=== PATIENT | female | born 1995 | race Caucasian/White ===

== ENCOUNTER 2019-07-17 22:51 | Inpatient (IN) | payer MEDICAID ==
[2019-07-18] MEDS ORDERED: ePHEDrine SULFATE 50 MG/1 ML INJ IV PRN ×2 (01:34→09:30)
[2019-07-18] MEDS ORDERED: PROMETHAZINE 25 MG TAB PO PRN ×2 (01:34→14:37)
[2019-07-18] MEDS ORDERED: TERBUTALINE 1 MG/1 ML INJ IVP PRN (01:34)
[2019-07-18] MEDS ORDERED: fentaNYL 100 MCG/2 ML INJ IV PRN (01:34)
[2019-07-18] MEDS ORDERED: BUTORPHANOL 2 MG/1 ML INJ IV PRN (01:34)
[2019-07-18] MEDS ORDERED: ONDANSETRON 4 MG/2 ML INJ IV PRN ×3 (01:34→19:04)
[2019-07-18] MEDS ORDERED: LIDOCAINE (2%) 20 MG/1 ML VIAL 20 ML MDV INFILTRATI ONE (01:34)
[2019-07-18] MEDS ORDERED: NALOXONE 0.4 MG/1 ML INJ IV PRN ×3 (01:34→19:04)
[2019-07-18] MEDS ORDERED: TERBUTALINE 1 MG/1 ML INJ SUB-Q PRN (01:34)
[2019-07-18] MEDS ORDERED: DINOPROSTONE 10 MG VAG SUPP VG ONE (01:34)
[2019-07-18] MEDS ORDERED: NalbUPHINE 10 MG/1 ML INJ IV PRN (01:34)
[2019-07-18] MEDS ORDERED: MINERAL OIL 30 ML ORAL LIQD PO PRN (01:34)
--- NOTE | 2019-07-18 01:44 | History and Physical Report ---
History of Present Illness Date of examination: 07/18/19 Date of admission: 07/18/19 Chief complaint: Leaking fluid History of present illness: Pt is a 24 yo at 40.0 weeks EGA who presents reporting leaking fluid since 1100 on 07/17 (15 hours before arrival to triage). She reports some movement. She has received care with [facility]. Her has been complicated by glucose intolerance with normal 3 hour GTT. She is GBS negative. Past History Past Medical History: no pertinent history Past Surgical History: no surgical history [employer] History: herpes (seropositive, no history outbreak) Family/Genetic History: none Social history: no significant social history - Obstetrical History Expected Date of Delivery: 07/18/19 Actual Gestation: 40 Week(s) 0 Day(s) : 1 Para: 0 Medications and Allergies Allergies Allergy/AdvReac Type Severity Reaction Status Date / Time No Known Allergies Allergy Verified 07/18/19 00:53 Home Medications Medication Instructions Recorded Confirmed Last Taken Type valACYclovir [Valtrex] 1 tab PO DAILY 07/18/19 07/18/19 07/17/19 History Active Meds: Active Medications Butorphanol Tartrate (Stadol) 2 mg IV Q2H PRN PRN Reason: Pain , Severe (7-10) Dinoprostone (Cervidil) 10 mg VG ONCE ONE Stop: 07/18/19 01:35 Ephedrine Sulfate (Ephedrine Sulfate) 10 mg IV Q2M PRN PRN Reason: Hypotension Fentanyl (Sublimaze) 100 mcg IV Q2H PRN PRN Reason: Labor Pain Oxytocin/Sodium Chloride (Pitocin/Ns 20 Unit/1000ml Drip) 20 units in 1,000 mls @ 125 mls/hr IV DIRECT LUI Oxytocin/Sodium Chloride (Pitocin/Ns 30 Unit/500ml) 30 units in 500 mls @ 1 mls/hr IV TITR LUI; Protocol Oxytocin/Sodium Chloride (Pitocin/Ns 30 Unit/500ml) 30 units in 500 mls @ 2 mls/hr IV TITR LUI; Protocol Lactated Ringer's (Lactated Ringers) 1,000 mls @ 125 mls/hr IV DIRECT LUI Lidocaine (Xylocaine 2%) 20 ml INFILTRATI ONCE ONE Stop: 07/18/19 01:35 Mineral Oil (Mineral Oil) 30 ml PO QHS PRN PRN Reason: Constipation Nalbuphine HCl (Nalbuphine) 10 mg IV Q2H PRN PRN Reason: Pain, Moderate (4-6) Naloxone HCl (Naloxone) 0.1 mg IV Q2MIN PRN PRN Reason: Res Rate </= 8 or 02 SAT < 92% Ondansetron HCl (Zofran) 4 mg IV Q8H PRN PRN Reason: Nausea And Vomiting Promethazine HCl (Phenergan) 25 mg PO Q6H PRN PRN Reason: Nausea And Vomiting Terbutaline Sulfate (Brethine) 0.25 mg SUB-Q ONCE PRN PRN Reason: Hyperstimulation/Hypertonicity Terbutaline Sulfate (Brethine) 0.25 mg IVP ONCE PRN PRN Reason: Hyperstimulation/Hypertonicity Review of Systems All systems: negative Genitourinary: leakage of fluid, contractions, no genital sores - Vital Signs Vital signs: Vital Signs Pulse BP 74 134/74 07/18/19 00:46 07/18/19 00:46 Temp Pulse Resp BP Pulse Ox 98.4 F 74 134/74 07/18/19 00:53 07/18/19 00:46 07/18/19 00:46 - Physical Exam Abdomen: Positive: soft Uterus: Positive: enlarged (EFW 8 lb) Extremities: Positive: normal - Obstetrical FHR: category 1 Uterine Contraction Monitor Mode: Palpation Cervical Dilatation: 1 Cervical Effacement Percentage: 60 station: -3 Uterine Tone Measurement Phase: Contraction Uterine Contraction Intensity: Strong/Firm Results All other labs normal. Assessment and Plan A: 24 yo at 40.0 weeks EGA SROM x15 hours GBS negative P: Admit for augmentation of labor Pain relief as requested Anticipate
[2019-07-18] MEDS ORDERED: OXYTOCIN DRIP 30 UNITS/500 ML BAG IV SCH ×2 (02:00)
[2019-07-18] MEDS ORDERED: LACTATED RINGERS 1,000 ML IV SCH ×2 (02:00→15:00)
[2019-07-18] MEDS ORDERED: OXYTOCIN 20 UNIT/1000ML DRIP 20 UNITS/1,000 ML BAG IV SCH ×3 (02:00→19:04)
[2019-07-18 03:21] LABS: Hematocrit 33.5 % (30.3-42.9); Hemoglobin 11.1 gm/dl (10.1-14.3); Mean Corpuscular HGB Conc 33 % (30-34); Mean Corpuscular Volume 82 fl (79-97); Platelet Count 165 K/mm3 (140-440); Red Blood Count 4.06 M/mm3 (3.65-5.03); Red Cell Distribution Width 14.7 % (13.2-15.2)
[2019-07-18] MEDS ORDERED: DEXMEDETOMIDINE 200 MCG/2 ML VIAL IV ONE ×2 (08:33→08:34)
--- NOTE | 2019-07-18 08:48 | Event Note ---
Date: 07/18/19 Pt very uncomfortable with contractions. SVE: /-3. Category II tracing. Routine intrapartum care.
[2019-07-18] MEDS ORDERED: AMPICILLIN/NS 2 GM/100 ML 2 GM/100 ML BAG IV ONE (09:00)
--- NOTE | 2019-07-18 09:00 | Anesthesia Consultation ---
Anesthesia Consult and Med Hx Date of service: 07/18/19 - Airway Anesthetic Teeth Evaluation: Good ROM Head & Neck: Adequate Mental/Hyoid Distance: Adequate Mallampati Class: Class II Intubation Access Assessment: Good - Pulmonary Exam CTA: Yes - Cardiac Exam Cardiac Exam: RRR - Pre-Operative Health Status ASA Pre-Surgery Classification: ASA2, Emergency Proposed Anesthetic Plan: Epidural - Pulmonary Hx Asthma: No COPD: No Hx Pneumonia: No - Cardiovascular System Hx Hypertension: No - Central Nervous System Hx Seizures: No Hx Psychiatric Problems: No - Endocrine Hx Renal Disease: No Hx End Stage Renal Disease: No Hx Hypothyroidism: No Hx Hyperthyroidism: No - Hematic Hx Anemia: No Hx Sickle Cell Disease: No - Other Systems Hx Alcohol Use: No
[2019-07-18] MEDS ORDERED: BUPIVACAINE/PF (0.25%) 2.5 MG/ML 10 ML VIAL INFILTRATI ONE (09:06)
[2019-07-18] MEDS ORDERED: NALOXONE 2 MG/2 ML INJ IV PRN (09:30)
[2019-07-18] MEDS ORDERED: fentaNYL-BUPIV 2 MCG/ML-0.125% 200 MCG/100 ML BAG EPIDURAL SCH ×2 (10:00→15:00)
[2019-07-18] MEDS ORDERED: AMPICILLIN/NS 1 GM/50 ML 1 GM/50 ML BAG IV SCH (13:00)
[2019-07-18] MEDS ORDERED: BUPIVACAINE/PF (0.5%) 5 MG/1 ML 30 ML VIAL INFILTRATI ONE ×2 (14:33)
[2019-07-18] MEDS ORDERED: FAMOTIDINE 20 MG/2 ML INJ IV SCH (14:35)
[2019-07-18] MEDS ORDERED: BICITRA ORAL LIQD 30ML PO SCH (14:35)
[2019-07-18] MEDS ORDERED: METOCLOPRAMIDE 10 MG/2 ML INJ IV SCH (14:35)
[2019-07-18] MEDS ORDERED: PROMETHAZINE 25 MG RECT SUPP PR PRN (14:37)
[2019-07-18] MEDS ORDERED: HYDROmorphone 1 MG/1 ML INJ IV PRN ×2 (14:37)
--- NOTE | 2019-07-18 14:37 | Anesthesia Day of Surgery ---
Anesthesia Day of Surgery - Day of Surgery Patient Examined: Yes Patient H&P Reviewed: Yes Patient is NPO: Yes
--- NOTE | 2019-07-18 14:47 | Event Note ---
Date: 07/18/19 Pt remains 9 cm despite adequate contractility for three hours. Decision made to proceed with delivery. Anesthesia aware.
[2019-07-18] MEDS ORDERED: ceFAZolin/Water 2 GM/20 ML 2 GM/20 ML SYRINGE IV NR (15:00)
[2019-07-18] MEDS ORDERED: PROPOFOL 200 MG/20 ML VIAL IV ONE (15:11)
[2019-07-18] MEDS ORDERED: METHYLERGONOVINE MALEATE 0.2 MG/ML VIAL IM ONE (15:13)
[2019-07-18] MEDS ORDERED: SODIUM CHLORIDE 0.9% IRR 1,500 ML BOTTLE IR ONE (15:20)
[2019-07-18] MEDS ORDERED: WATER FOR IRRIG STERILE 1,500 ML BOTTLE IR ONE (15:20)
[2019-07-18] MEDS ORDERED: MIDAZOLAM 2 MG/2 ML INJ ONE (15:25)
[2019-07-18] MEDS ORDERED: fentaNYL 100 MCG/2 ML INJ ONE (15:26)
[2019-07-18] MEDS ORDERED: ONDANSETRON 4 MG/2 ML INJ ONE (15:58)
[2019-07-18] MEDS ORDERED: ROCURONIUM 50 MG/5 ML INJ IV ONE (15:58)
[2019-07-18] MEDS ORDERED: OXYTOCIN 10 UNIT/1 ML INJ ONE (15:58)
[2019-07-18] MEDS ORDERED: KETOROLAC 30 MG/1 ML INJ ONE (15:58)
[2019-07-18] MEDS ORDERED: SUCCINYLCHOLINE CHLORIDE 200 MG/10 ML INJ MDV ONE (15:58)
--- NOTE | 2019-07-18 16:25 | Procedure Note ---
OB Delivery Note - Delivery Date of Delivery: 07/18/19 Surgeon: NHI HEBERT Estimated blood loss: other (800 mL) - Section Preop diagnosis: arrest of dilation Postop diagnosis: same section procedure: section, primary low transverse Disposition: PACU Complications: none Narrative: Please see operative report. - Infant A at 1 minute: 7 at 5 minutes: 8 Gender: Male (4003g @ 1533 pm)
--- NOTE | 2019-07-18 16:26 | Operative Report ---
Operative Report Operative Report: Date of procedure: July 18, 2019 Preoperative diagnosis: 1) IUP at 40w0d 2)Prolonged ROM 3) Obesity 4) Arrest of Dilation Postoperative diagnosis: Same Procedure:Primary low transverse section Surgeon: Saige Rojas M.D. Anesthesia: GETA Findings: 1) Viable male , Apgars 7 and 8, weight 4003g in cephalic presentation, occiput posterior 2) Normal-appearing uterus ovaries and tubes. Estimated blood loss: 800 mL Urine output: 200 mL, clear at the end of the procedure Drains: Misrha to gravity Specimens: Placenta to pathology Complications:None.Counts correct x 3 Disposition: Stable to PACU Indication for procedure: Pt is a 24 year old primigravida at 40w0d presents with rupture of membranes 15 hrs prior to presentation. She arrested at 9 cm for three hours despite adequate contractility. The decision was made to proceed to section. Operation in detail: After the risks, benefits, alternatives and complications were explained to the patient she gave informed consent for the procedure. She was subsequently taken to the operating room where regional anesthesia was noted to be inadequate. She was subsequently placed in the dorsal supine position with leftward tilt and prepped and draped in a normal sterile fashion. heart tones were noted to be in the 130s prior to incision. A timeout was performed. General anesthesia was then induced without difficulty. A Pfannenstiel skin incision was made with the knife and carried down to the layer of the fascia with the Bovie. The fascia was incised in the midline and the fascial incision was extended bilaterally with the Bovie. The fascial incision was then stretched. The rectus muscles were then in the midline. The peritoneum was then entered sharply. The peritoneal incision was extended with good visualization of the bladder. The peritoneal incision was then stretched. An Attila retractor was placed. The bladder blade was placed. A transverse incision was made in the lower uterine segment with a knife and extended bilaterally with the bandage scissors. The head was delivered with some difficulty followed by shoulders and body. was bulb suctioned at delivery. The cord was clamped and cut and the was handed to NICU staff in attendance. Cord blood was collected. The placenta was then delivered manually. The uterus was then exteriorized and cleared of all clots and debris. The hysterotomy was then reapproximated with 0 Vicryl in a running locked fashion. A second layer of the same suture was used in imbricating fashion. The hysterotomy was inspected and hemostasis was noted. The uterus was placed back into the peritoneal cavity. The gutters were irrigated and cleared of all clots and debris. The hysterotomy was again inspected and noted to be hemostatic. Surgicel was placed over the hysterotomy. The peritoneum was reapproximated with 2-0 Vicryl in a running fashion incorporating the rectus muscles. Surigcel was placed over the cut surface of the muscles. The fascia was reapproximated with 0 Vicryl in a running fashion. The subcutaneous tissue was reapproximated with 3-0 Vicryl in a running fashion. The skin was reapproximated with 4-0 Vicryl in a subcuticular fashion. The incision was then covered with steri strips and a pressure dressing. The procedure was then ended. The patient tolerated the procedure well and was taken to the PACU in stable condition. All instrument, lap, and needle counts were correct 3.
--- NOTE | 2019-07-18 17:22 | Post Anesthesia Evaluation ---
- Post Anesthesia Evaluation Patient Participated: Yes Airway Patent: Yes Stable Respiratory Function: Yes Nausea/Vomiting: No Temp > 96.8F: Yes Pain Manageable: Yes (KILLIAN QL block for POP) Adequeate Hydration: Yes Anesthesia Complications: No Block Receding Appropriately: Yes Patient on Ventilator: No
[2019-07-18] MEDS ORDERED: MORPHINE 2 MG/1 ML INJ IV PRN (19:04)
[2019-07-18] MEDS ORDERED: D5W/LACTATED RINGERS 1,000 ML IV SCH (19:04)
[2019-07-18] MEDS ORDERED: WITCH HAZEL/ GLYCERIN PAD TP PRN (19:04)
[2019-07-18] MEDS ORDERED: MORPHINE 4 MG/1 ML INJ IV PRN (19:04)
[2019-07-18] MEDS ORDERED: LANOLIN/ZINC/DIMETHICONE (LANSINOH) 7 GM TP PRN (19:04)
[2019-07-18] MEDS: ceFAZolin/NS 1 GM/50 ML 1 GM/50 ML BAG IV SCH (23:18)
[2019-07-19 04:51] LABS: Hematocrit 30.1 % (30.3-42.9); Hemoglobin 9.9 gm/dl (10.1-14.3)
[2019-07-19] MEDS: oxyCODONE /ACETAMINOPHEN 5-325MG TAB PO PRN ×3 (05:56→19:55)
[2019-07-19] MEDS ORDERED: TETANUS,DIPH,PERTUSS(ACELL) VACCINE 0.5 ML SYRINGE IM ONE (06:00)
[2019-07-19] MEDS ORDERED: MEASLES, MUMPS & RUBELLA 12,500 UNIT/0.5 ML VACCINE SUB-Q ONE (06:00)
[2019-07-19] MEDS: ceFAZolin/NS 1 GM/50 ML 1 GM/50 ML BAG IV SCH (06:28)
[2019-07-19] MEDS: PRENATAL VIT27-FE FUMARATE-FOLIC ACID VIT TAB PO SCH (10:07)
[2019-07-19] MEDS: FERROUS SULFATE 325 MG TAB PO SCH (10:07)
--- NOTE | 2019-07-19 13:00 | Progress Note ---
Assessment and Plan POD1 s/p primary c/s and chorioamnionitis VSS Anemia- ferrous sulfate Initiate bowel regimen Routine pp care Subjective - Subjective Date of service: 07/19/19 Principal diagnosis: s/p primary c/s Interval history: POD1 s/p primary c/s Patient reports: appetite normal, voiding normally, pain well controlled, ambulating normally, no flatus : doing well, bottle feeding Objective - Vital Signs Latest vital signs: Vital Signs Temp Pulse Resp BP BP Pulse Ox 07/19/19 12:11 97.8 F 92 H 18 110/64 98 07/19/19 08:41 98.7 F 87 18 106/58 97 07/19/19 04:20 98.8 F 99 H 20 101/54 95 07/18/19 23:36 98.4 F 81 20 112/59 95 07/18/19 20:31 98.1 F 67 20 126/70 97 07/18/19 18:53 20 07/18/19 18:13 97.9 F 67 20 113/48 97 07/18/19 17:57 98.6 F 74 19 120/57 6 L 07/18/19 17:44 66 22 112/63 94 07/18/19 17:30 61 21 117/61 97 07/18/19 17:25 63 24 113/67 97 07/18/19 17:15 63 31 H 115/67 97 07/18/19 17:10 65 26 H 119/64 98 07/18/19 17:05 67 32 H 113/69 97 07/18/19 17:00 65 25 H 109/64 98 07/18/19 16:55 59 L 15 120/74 100 07/18/19 16:51 68 18 116/77 100 07/18/19 16:45 61 30 H 100/51 99 07/18/19 16:40 61 25 H 100/55 98 07/18/19 16:36 96.7 F L 77 24 86/42 97 07/18/19 15:52 93 H 24 117/68 98 07/18/19 14:53 80 98 07/18/19 14:48 81 99 07/18/19 14:43 76 99 07/18/19 14:38 81 132/88 98 07/18/19 14:33 85 99 07/18/19 14:28 81 98 07/18/19 14:23 85 97 07/18/19 14:22 83 132/67 07/18/19 14:18 89 99 07/18/19 14:13 93 H 99 07/18/19 14:08 83 143/71 100 07/18/19 14:03 83 98 07/18/19 13:58 83 99 07/18/19 13:54 90 132/67 07/18/19 13:53 85 99 07/18/19 13:48 81 98 07/18/19 13:43 83 99 07/18/19 13:38 79 98 07/18/19 13:37 74 125/63 07/18/19 13:33 79 97 07/18/19 13:29 80 151/78 07/18/19 13:28 95 H 95 07/18/19 13:26 83 162/67 07/18/19 13:25 85 89 07/18/19 13:22 90 157/93 98 07/18/19 13:17 93 H 100 07/18/19 13:12 80 97 07/18/19 13:09 80 107/53 07/18/19 13:07 75 100 07/18/19 13:02 85 98 Intake and Output 07/18/19 07/19/19 07/19/19 23:59 07:59 15:59 Intake Total 1800 240 240 Output Total 1750 1300 700 Balance 50 -1060 -460 Intake: IV 1800 ANCEF/NS 1 GM/50 ML 1 gm 50 In 50 ml @ 100 mls/hr IV Q8H [facility] Rx#:[id number] Oral 240 Intake, Free Water 240 Output: Urine 1750 1300 700 Indwelling Catheter 1300 Uretheral (Mishra) 1250 Void 700 Other: Total, Intake Amount 120 Total, Output Amount 600 700 # Voids Void 1 - Exam Lungs: Present: Normal air movement Abdomen: Present: soft Uterus: Present: firm, fundal height below umbilicus Extremities: Present: normal Incision: Present: dressed - Labs Labs: Abnormal lab results 07/19/19 Range/Units 04:30 Hgb 9.9 L (10.1-14.3) gm/dl Hct 30.1 L (30.3-42.9) %
[2019-07-19] MEDS: MAGNESIUM HYDROXIDE (MOM) ORAL LIQD UDC PO PRN ×2 (16:25→21:20)
[2019-07-19] MEDS: IBUPROFEN 800 MG TAB PO PRN ×2 (16:25→23:37)
[2019-07-20] MEDS: IBUPROFEN 800 MG TAB PO PRN ×2 (05:23→16:42)
--- NOTE | 2019-07-20 08:24 | Progress Note ---
Assessment and Plan POD2 s/p primary c/s and chorioamnionitis VSS Anemia- ferrous sulfate Routine pp care. Anticipate d/c to home on POD3 Subjective - Subjective Date of service: 07/20/19 Principal diagnosis: s/p primary c/s Interval history: POD2 s/p primary c/s Patient reports: appetite normal, voiding normally, pain well controlled, flatus, ambulating normally : doing well, bottle feeding Objective - Vital Signs Latest vital signs: Vital Signs Temp Pulse Resp BP BP Pulse Ox 07/20/19 05:23 18 07/20/19 00:00 97.4 F L 79 20 117/72 97 07/19/19 23:37 18 07/19/19 19:55 18 07/19/19 15:29 98.0 F 92 H 18 114/68 97 07/19/19 12:11 97.8 F 92 H 18 110/64 98 07/19/19 08:41 98.7 F 87 18 106/58 97 Intake and Output 07/19/19 07/20/19 07/20/19 23:59 07:59 15:59 Intake Total 480 240 Output Total 400 Balance 80 240 Intake: Oral 480 240 Output: Urine 400 Void 400 Other: Total, Intake Amount 480 240 Total, Output Amount 400 # Voids Void 1 1 - Exam Lungs: Present: Normal air movement Abdomen: Present: soft Uterus: Present: firm, fundal height below umbilicus Incision: Present: dressed
[2019-07-20] MEDS: FERROUS SULFATE 325 MG TAB PO SCH (11:26)
[2019-07-20] MEDS: PRENATAL VIT27-FE FUMARATE-FOLIC ACID VIT TAB PO SCH (11:26)
--- NOTE | 2019-07-21 08:25 | Progress Note ---
Assessment and Plan POD3 s/p primary c/s and chorioamnionitis VSS Anemia- ferrous sulfate d/c home today with f/u in 2 weeks Subjective - Subjective Date of service: 07/21/19 Principal diagnosis: s/p primary c/s Patient reports: appetite normal, voiding normally, pain well controlled, flatus, ambulating normally [place]: doing well Objective - Vital Signs Latest vital signs: Vital Signs Temp Pulse Resp BP BP Pulse Ox 07/21/19 00:30 98.5 F 90 18 127/80 100 07/20/19 17:52 98.6 F 91 H 18 115/69 98 07/20/19 11:28 98.0 F 18 113/72 07/20/19 08:37 98.0 F 82 18 112/68 95 Intake and Output 07/20/19 07/21/19 07/21/19 23:59 07:59 15:59 Intake Total 360 240 Balance 360 240 Intake: Intake, Free Water 360 240 Other: # Voids Void 2 2 - Exam Breasts: Present: normal Cardiovascular: Present: Regular rate, Normal S1 Lungs: Present: Clear to auscultation, Normal air movement Abdomen: Present: normal appearance, soft, normal bowel sounds. Absent: distention, tenderness, guarding Vulva: both: normal Uterus: Present: normal, firm. Absent: bogginess, tenderness Extremities: Present: normal Deep Tendon Reflex Grade: Normal +2 Incision: Present: normal, dry, intact
--- NOTE | 2019-07-21 08:27 | Discharge Summary ---
Providers - Providers Date of Admission: 07/18/19 01:55 Date of discharge: 07/21/19 Attending physician: DOMINGO SHANNON MD Primary care physician: DOMINGO SHANNON MD Hospitalization Reason for admission: IUP at term Delivery: Procedure: section Episiotomy: none Laceration: none Incision: normal, dry, intact Other procedures: none complications: none Discharge diagnosis: IUP at term delivered [place] baby: male Hospital course: Priscilla had a repeat csec for arrest of dilatation. Did well PP. Discharge on POD3 Condition at discharge: Good Disposition: DC-01 TO HOME OR SELFCARE Plan - Discharge Medications Prescriptions: Ferrous Sulfate [Feosol 325 MG tab] 325 mg PO BID #60 tablet Ibuprofen [Motrin] 800 mg PO Q8HR PRN #30 tablet PRN Reason: Pain, Moderate (4-6) oxyCODONE /ACETAMINOPHEN [Percocet 5/325] 1 tab PO Q6HR PRN #40 tablet PRN Reason: Pain - Provider Discharge Summary Activity: routine, no sex for 6 weeks, no strenuous exercise Diet: routine Instructions: routine Additional instructions: [] Smoking cessation referral if applicable(refer to patient education folder for contact #) [] Refer to [facility] Booklet Call your doctor immediately for: * Fever > 100.5 * Heavy vaginal bleeding ( >1 pad per hour) * Severe persistent headache * Shortness of breath * Reddened, hot, painful area to leg or breast * Drainage or odor from incision. * Keep incision clean and dry at all times and follow doctor's instructions regarding bathing/showering - Follow up plan Follow up: DOMINGO SHANNON MD [Primary Care Provider] - 14 Days
[2019-07-21] MEDS: FERROUS SULFATE 325 MG TAB PO SCH (10:13)
[2019-07-21] MEDS: IBUPROFEN 800 MG TAB PO PRN (10:14)
[2019-07-21] MEDS: PRENATAL VIT27-FE FUMARATE-FOLIC ACID VIT TAB PO SCH (10:14)
[2019-07-21 12:39] VITALS: BP 106/62
== END 2019-07-21 12:40 | disposition home or self-care (01) | DRG 765 ==
LOC: TRG 22:51 → LD 07-18 01:55 → OB 07-18 18:38
PROVIDERS: ADMIT Obstetrics & Gynecology; ATTEND Obstetrics & Gynecology
PROC: 10D00Z1 Extraction of Products of Conception, Low, Open Approach (ICD-10-PCS; principal; 2019-07-18)
PROC: 3E0234Z Introduction of Serum, Toxoid and Vaccine into Muscle, Percutaneous Approach (ICD-10-PCS; 2019-07-19)
PROC: 3E0134Z Introduction of Serum, Toxoid and Vaccine into Subcutaneous Tissue, Percutaneous Approach (ICD-10-PCS; 2019-07-19)
DX: O41.1230 Chorioamnionitis, third trimester, not applicable or unspecified (principal); D62 Acute posthemorrhagic anemia; O63.9 Long labor, unspecified; O99.214 Obesity complicating childbirth; E66.9 Obesity, unspecified; O62.1 Secondary uterine inertia; O99.03 Anemia complicating the puerperium; Z3A.40 40 weeks gestation of pregnancy; Z37.0 Single live birth; Z23 Encounter for immunization
CPT/HCPCS: 36415; 85014; 85018; 85027; 86850; 86900; 86901; 88307; G0378; J0290; J0330; J0595; J0690; J1170; J1885; J2210; J2250; J2270; J2405; J2590; J2704; J2765; J3010; J3490; J7120; J7121; Q0169